=== PATIENT | male | born 1940 | race Caucasian/White ===

== ENCOUNTER 2024-04-28 06:07 | Day surgery (SDC) | payer MEDICARE ==
[2024-04-27 14:33] LABS: BASOPHILS % (AUTO) 0.5 % (0-1); EOSINOPHILS # (AUTO) 0.3 X10'3 (0-0.9); EOSINOPHILS % (AUTO) 3.8 % (0-6); HEMATOCRIT 30.7 % (42.0-52.0); HEMOGLOBIN 9.8 g/dl (14.0-17.9); LYMPHOCYTES # (AUTO) 1.4 X10'3 (1.1-4.8); LYMPHOCYTES % (AUTO) 20.8 % (21-51); MEAN CORPUSCULAR HGB CONC 31.9 g/dL (33.0-36.5); MEAN CORPUSCULAR VOLUME 72.2 FL (78-98); MEAN PLATELET VOLUME 7.3 FL (7.4-10.4); MONOCYTES # (AUTO) 0.6 X10'3 (0-0.9); MONOCYTES % (AUTO) 8.5 % (2-12); NEUTROPHILS # (AUTO) 4.4 X10'3 (1.8-7.7); NEUTROPHILS % (AUTO) 66.4 % (42-75); PLATELET COUNT 248 X10'3 (140-440); RED BLOOD COUNT 4.26 X10'6 (4.70-6.10); RED CELL DISTRIBUTION WIDTH 20.8 % (11.5-14.5); WHITE BLOOD COUNT 6.7 X10'3 (4.5-11.0)
[2024-04-27 14:47] LABS: ALBUMIN 3.9 G/DL (3.4-5.0); ANION GAP 7 (8-16); BLOOD UREA NITROGEN 26 MG/DL (7-18); BUN/CREATININE RATIO 22.6 (10.0-20.0); CALCIUM 8.7 MG/DL (8.5-10.1); CHLORIDE 108 MMOL/L (99-107); CREATININE 1.15 MG/DL (0.60-1.10); GLUCOSE 90 MG/DL (70-104); POTASSIUM 4.7 MMOL/L (3.5-5.1); SODIUM 142 MMOL/L (135-145); TOTAL CARBON DIOXIDE 26.8 MMOL/L (24-32); eGFR 61 ML/MIN
[2024-04-27 14:48] LABS: INR 1.1 INR; PROTHROMBIN TIME 11.8 SECONDS (9.0-12.0)
[2024-04-27 15:23] LABS: ANISOCYTOSIS 3+; MICROCYTOSIS 1+; PLATELET ESTIMATE NORMAL
[~2024-04-28] VITALS: Ht 180.3 cm; Wt 77.3 kg
[2024-04-28] VITALS (9 sets, daily range): BP systolic 122–148; BP diastolic 76–91; PULSE 67–84; RESP 16; TEMP 97.9; O2SAT 97–100
[~2024-04-28 06:07] MED LIST: AMIO200T27 PO; APIX5TAB3 PO; ASPI-771 PO; ATOR20TA66 PO; CA C1TAB95 PO; CARV6.253 PO; CELE-389 PO; CEPH-585 PO; ESCI20TA39 PO; EZET-82 PO; LEVO200T42 PO; LISI20TA28 PO; OMEG-179 PO; VIT1CAPS9 PO; VITA-290 PO
[2024-04-28] MEDS ORDERED: AMIO100T4 PO (06:31)
[2024-04-28] MEDS ORDERED: atropine 0.1mg/ml 10ml syringe IV ONE (06:40)
[2024-04-28] MEDS ORDERED: diphenhydrAMINE 25mg capsule PO ONE (06:40)
[2024-04-28] MEDS ORDERED: amiodarone 150mg/dext, iso-os 100 ML IV ONE (06:40)
[2024-04-28] MEDS ORDERED: LORazepam 0.5 MG tablet PO ONE (06:40)
[2024-04-28] MEDS ORDERED: CARV6.252 PO (06:41)
[2024-04-28] MEDS ORDERED: ATOR20TA66 PO (06:41)
[2024-04-28] MEDS: morphine 10mg/ml inj. IV ONE (08:57)
[2024-04-28] MEDS: MIDAZolam 1mg/ml 10ml vial IV ONE (08:57)
[2024-04-28] MEDS: normal saline 1000ml 1,000 ML IV SCH (08:58)
== END 2024-04-28 11:30 | disposition home or self-care (01) ==
LOC: SSTAY O 06:07
PROVIDERS: ATTEND Internal Medicine Cardiovascular Disease
DX: I48.19 Other persistent atrial fibrillation (principal); I10 Essential (primary) hypertension; E78.5 Hyperlipidemia, unspecified; I49.5 Sick sinus syndrome; I48.0 Paroxysmal atrial fibrillation; F03.90 Unspecified dementia, unspecified severity, without behavioral disturbance, psychotic disturbance, mood disturbance, and anxiety; E03.9 Hypothyroidism, unspecified; G47.30 Sleep apnea, unspecified; Z98.49 Cataract extraction status, unspecified eye; M19.90 Unspecified osteoarthritis, unspecified site; Z95.0 Presence of cardiac pacemaker
CPT/HCPCS: 36415; 80048; 85025; 85610; 92960; 93005; J2250; J2274; J7030; 85008

== ENCOUNTER 2024-07-07 07:06 | Day surgery (SDC) | payer MEDICARE ==
[2024-07-06 12:26] LABS: BASOPHILS % (AUTO) 0.4 % (0-1); EOSINOPHILS # (AUTO) 0.4 X10'3 (0-0.9); EOSINOPHILS % (AUTO) 4.7 % (0-6); HEMATOCRIT 33.7 % (42.0-52.0); HEMOGLOBIN 10.3 g/dl (14.0-17.9); LYMPHOCYTES # (AUTO) 1.5 X10'3 (1.1-4.8); LYMPHOCYTES % (AUTO) 20.5 % (21-51); MEAN CORPUSCULAR HEMOGLOBIN 22.9 PG (27.0-31.0); MEAN CORPUSCULAR HGB CONC 30.5 g/dL (33.0-36.5); MEAN CORPUSCULAR VOLUME 74.9 FL (78-98); MEAN PLATELET VOLUME 7.6 FL (7.4-10.4); MONOCYTES # (AUTO) 0.6 X10'3 (0-0.9); MONOCYTES % (AUTO) 7.3 % (2-12); NEUTROPHILS % (AUTO) 67.1 % (42-75); PLATELET COUNT 305 X10'3 (140-440); RED BLOOD COUNT 4.49 X10'6 (4.70-6.10); RED CELL DISTRIBUTION WIDTH 19.2 % (11.5-14.5); WHITE BLOOD COUNT 7.5 X10'3 (4.5-11.0)
[2024-07-06 12:33] LABS: ALBUMIN 4.1 G/DL (3.4-5.0); ANION GAP 7 (8-16); BLOOD UREA NITROGEN 26 MG/DL (7-18); CHLORIDE 106 MMOL/L (99-107); CREATININE 1.13 MG/DL (0.60-1.10); GLUCOSE 81 MG/DL (70-104); POTASSIUM 4.7 MMOL/L (3.5-5.1); SODIUM 140 MMOL/L (135-145); TOTAL CARBON DIOXIDE 26.9 MMOL/L (24-32); eGFR 62 ML/MIN
[2024-07-06 12:34] LABS: INR 1.1 INR; PROTHROMBIN TIME 11.4 SECONDS (9.0-12.0)
[2024-07-06 13:02] LABS: PLATELET ESTIMATE NORMAL
[2024-07-06 13:03] LABS: ANISOCYTOSIS 2+; MICROCYTOSIS 1+
[2024-07-06 13:04] LABS: ACANTHOCYTES FEW; ELLIPTOCYTES FEW; TEAR DROP CELLS FEW
[~2024-07-07] VITALS: Ht 180.3 cm; Wt 76.8 kg
[2024-07-07] VITALS (11 sets, daily range): BP systolic 109–139; BP diastolic 57–79; PULSE 58–70; RESP 10–16; TEMP 97.9; O2SAT 98–100
[~2024-07-07 07:06] MED LIST changes: +AMIO100T4 PO; -AMIO200T27 PO; -CA C1TAB95 PO; +CARV6.252 PO; -CARV6.253 PO; -CEPH-585 PO; -LISI20TA28 PO
[2024-07-07] MEDS ORDERED: amiodarone 150mg/dext, iso-os 100 ML IV ONE (07:50)
[2024-07-07] MEDS ORDERED: atropine 0.1mg/ml 10ml syringe IV ONE (07:50)
[2024-07-07] MEDS ORDERED: diphenhydrAMINE 25mg capsule PO ONE (07:50)
[2024-07-07] MEDS ORDERED: MIDAZolam 1mg/ml 10ml vial IV ONE (07:50)
[2024-07-07] MEDS ORDERED: LORazepam 0.5 MG tablet PO ONE ×2 (07:50→08:10)
[2024-07-07] MEDS ORDERED: PANT40TA54 PO (08:14)
[2024-07-07] MEDS ORDERED: EZET-61 PO (08:14)
[2024-07-07] MEDS ORDERED: ESCI-8 PO (08:14)
[2024-07-07] MEDS: morphine 10mg/ml inj. IV ONE (09:06)
[2024-07-07] MEDS: MIDAZolam 1mg/ml 10ml vial IV ONE (09:06)
[2024-07-07] MEDS: normal saline 1000ml 1,000 ML IV SCH (09:07)
== END 2024-07-07 10:25 | disposition home or self-care (01) ==
LOC: SSTAY O 07:06
PROVIDERS: ATTEND Internal Medicine Cardiovascular Disease
DX: I48.0 Paroxysmal atrial fibrillation (principal); E78.5 Hyperlipidemia, unspecified; I49.5 Sick sinus syndrome; I10 Essential (primary) hypertension; Z95.0 Presence of cardiac pacemaker; Z82.49 Family history of ischemic heart disease and other diseases of the circulatory system; Z79.899 Other long term (current) drug therapy
CPT/HCPCS: 36415; 80048; 85025; 85610; 92960; 93005; J2250; J2274; J7030; 85008